=== PATIENT | male | born 1990 | race Caucasian/White ===

== ENCOUNTER 2016-11-01 10:15 | Emergency (ER) | payer OTHER ==
[~2016-11-01] VITALS: Ht 175.3 cm; Wt 90.0 kg
[2016-11-01 10:17] VITALS: BP 127/74; PULSE 75; RESP 12; TEMP 97.8; O2SAT 98
--- NOTE | 2016-11-01 11:17 | PD ---
HPI Chief Complaint: Injury Time Seen by Provider: 11:14 Travel History International Travel<30 days: No Contact w/Intl Traveler<30days: No Traveled to known affect area: No History of Present Illness HPI Patient is a 26-year-old male who presents for evaluation of right first toe pain. Patient states that he was jumping at [employer] and hyper extended his foot last night subsequently causing pain and swelling in the first MTP joint. Patient states is painful to bend it or walk. He states the pain is decreased with rest. Patient reports his pain as a 7 out of 10 when he is ambulating. He denies any other complaints at this time or significant past medical history. PFS Past Medical History Medical History: Denies Significant Hx Social History Alcohol Use: Yes Tobacco Use: No Substance Use: No Allergies-Medications (Allergen,Severity, Reaction): Coded Allergies: No Known Allergies (Unverified , 11/01/16) Reported Meds & Prescriptions Reported Meds & Active Scripts Active Ibuprofen 800 Mg Tab 800 Mg PO Q6HR PRN Review of Systems Except as stated in HPI: all other systems reviewed are Neg Musculoskeletal: Positive: Myalgias, Arthralgias, Edema, Pain Skin: Positive Change in Pigmentation Physical Exam Narrative GENERAL: Well-nourished, well-developed patient. SKIN: Warm and dry. Mild ecchymosis noted over the right first MTP joint. HEAD: Normocephalic. EYES: No scleral icterus. No injection or drainage. NECK: Supple, trachea midline. No JVD or lymphadenopathy. CARDIOVASCULAR: Regular rate and rhythm without murmurs, gallops, or rubs. RESPIRATORY: Breath sounds equal bilaterally. No accessory muscle use. GASTROINTESTINAL: Abdomen soft, non-tender, nondistended. MUSCULOSKELETAL: No cyanosis, mild edema noted over the first toe on the right more so over the MTP joint. Positive pedal pulses, brisk less than 3 second capillary refill. Decreased range of motion with flexion and extension of the right first toe. BACK: Nontender without obvious deformity. No CVA tenderness. Data Data Last Documented VS Vital Signs Date Time Temp Pulse Resp B/P Pulse Ox O2 Delivery O2 Flow Rate FiO2 11/01/16 10:17 97.8 75 12 127/74 98 Room Air Orders Foot, Complete ([id number]) (11/01/16 ) [facility] Medical Decision Making Medical Screen Exam Complete: Yes Emergency Medical Condition: Yes Interpretation(s) Vital Signs Date Time Temp Pulse Resp B/P Pulse Ox O2 Delivery O2 Flow Rate FiO2 11/01/16 10:17 97.8 75 12 127/74 98 Room Air Differential Diagnosis Contusion versus sprain versus strain versus fracture versus other Narrative Course Patient is a 26-year-old male who presented to emergency room for evaluation of right first toe pain after injuring it W a trampoline last night. Patient is neurovascularly intact. There is mild edema and ecchymosis over the right first MTP joint. Patient is neurovascularly intact. Imaging pending. Imaging is negative for acute fracture or bony abnormality. Patient is encouraged to take ibuprofen as needed for pain. Continue range of motion exercises, all to heat and ice to affected area. Follow-up with his primary doctor return to emergency department for any new or worsening symptoms. Patient is stable for discharge. Diagnosis Primary Impression: Strain of toe of left foot Qualified Code: S96.912A - Strain of toe of left foot, initial encounter Referrals: Primary Care Physician Patient Instructions: General Instructions, Muscle Strain (ED) Departure Forms: Tests/Procedures, Work Release Enter return to work date: Nov 02, 2016 Additional Instructions: Follow-up with her primary doctor Take medications as directed Alternate heat and ice to affected area, continue range of motion exercises Return to emergency department for any new or worsening symptoms Med/Other Pt SpecificInfo: Prescription(s) given Scripts Ibuprofen 800 Mg [id number] Mg PO Q6HR PRN (PAIN) #40 TAB Ref 0 Prov:Siomara Hdez 11/01/16 Disposition: 01 DISCHARGE HOME Condition: Stable Siomara Hdez Nov 01, 2016 11:17 Siomara Hdez Nov 01, 2016 11:17
--- NOTE | 2016-11-01 12:07 | RADRPT ---
EXAM DATE/TIME: 11/01/2016 11:42 [facility] COMPARISON: No previous studies available for comparison. INDICATIONS : Patient tripped and fell injuring toe. MEDICAL HISTORY : None. SURGICAL HISTORY : None. ENCOUNTER: Initial ACUITY: 1 day PAIN SCORE: 8/10 LOCATION: Right 1st MTP joint FINDINGS: Three view examination of the right foot demonstrates no soft tissue swelling, dislocation, or fractu re. The tarsal bones appear intact. The interphalangeal and metatarsophalangeal joints are intact. The calcaneus is intact. Bony mineralization is normal. CONCLUSION: Negative examination. Gautam Coker MD on November 01, 2016 at 12:05 Board Certified Radiologist. This report was verified electronically.
[2016-11-01] MEDS ORDERED: IBUP800T23 PO (12:18)
== END 2016-11-01 12:26 | disposition home or self-care (01) ==
LOC: NEPB 10:15
DX: S96.912A Strain of unspecified muscle and tendon at ankle and foot level, left foot, initial encounter (principal); X50.9XXA Other and unspecified overexertion or strenuous movements or postures, initial encounter; Y93.39 Activity, other involving climbing, rappelling and jumping off; Y92.830 Public park as the place of occurrence of the external cause
CPT/HCPCS: 73630; 99283